=== PATIENT | female | born 1970 | race African-American/Black ===

== ENCOUNTER 2017-06-27 13:47 | Emergency (ER) | payer SELFPAY ==
[~2017-06-27] VITALS: Ht 157.5 cm; Wt 82.6 kg
[~2017-06-27 13:47] MED LIST: HYDROCHLOROTHIA25 MG ORAL
[2017-06-27] MEDS ORDERED: Methocarbamol 750mg tab ORAL ONE (14:30)
[2017-06-27] MEDS ORDERED: ROBAXIN-750750 MG PO (15:07)
[2017-06-27] MEDS ORDERED: IBUPROFEN600 MG ORAL (15:07)
[2017-06-27 15:20] VITALS: BP 130/87
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
== END 2017-06-27 15:20 | disposition home or self-care (01) ==
LOC: EMR 14:51
DX: S16.1XXA Strain of muscle, fascia and tendon at neck level, initial encounter (principal); V43.52XA Car driver injured in collision with other type car in traffic accident, initial encounter; Y92.410 Unspecified street and highway as the place of occurrence of the external cause; I10 Essential (primary) hypertension
CPT/HCPCS: 99283

== ENCOUNTER 2020-09-13 09:14 | Emergency (ER) | payer OTHER ==
[~2020-09-13] VITALS: Ht 157.5 cm; Wt 90.7 kg
[~2020-09-13 09:14] MED LIST changes: +IBUPROFEN600 MG ORAL; +ROBAXIN-750750 MG PO
[2020-09-13 09:47] VITALS: BP 166/96
--- NOTE | 2020-09-13 10:05 | Emergency Room Report ---
History of Present Illness General Chief Complaint: Lower Extremity Injury Source: Patient Present Illness HPI 50-year-old female presents with right knee pain and swelling. Started a few days ago. States that she "has bad knees" but has not sought medical attention yet. Pain is throbbing, 6 out of 10, nonradiating. Denies any calf pain or calf swelling. Is able to bear weight. No other aggravating relieving factors. 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 Patient History Past Medical History: HTN Past Surgical History: none Pertinent Family History: none Social History: Denies: smoking, alcohol use, drug use Last Menstrual Period: NA Now: No Immunizations: UTD Reviewed Nursing Documentation: PMH: Agreed; PSxH: Agreed Nursing Documentation-PMH Past Medical History: No History, Except For Hx Hypertension: Yes Review of Systems All Other Systems: negative except mentioned in HPI Physical Exam Vital Signs Date Time Temp Pulse Resp B/P (MAP) Pulse Ox O2 Delivery O2 Flow Rate FiO2 09/13/20 09:47 98.8 79 20 166/96 (119) 97 Room Air Sp02 EP Interpretation: reviewed, normal General Appearance: no apparent distress, alert, GCS 15, non-toxic Head: normocephalic, atraumatic Eyes: bilateral eye normal inspection, bilateral eye PERRL ENT: hearing grossly normal, normal pharynx, no angioedema, normal voice Neck: full range of motion, supple/symm/no masses Respiratory: chest non-tender, lungs clear, normal breath sounds, speaking full sentences Cardiovascular #1: regular rate, rhythm, no edema Cardiovascular #2: 2+ carotid (R), 2+ carotid (L), 2+ radial (R), 2+ radial (L), 2+ dorsalis pedis (R), 2+ dorsalis pedis (L) Gastrointestinal: normal bowel sounds, non tender, soft, non-distended, no guarding, no rebound Rectal: deferred Genitourinary: normal inspection, no CVA tenderness Musculoskeletal: back normal, normal range of motion, gait/station normal, tender - R knee Neurologic: alert, motor strength/tone normal, oriented x3, sensory intact, responsive, speech normal Psychiatric: judgement/insight normal, memory normal, mood/affect normal, no suicidal/homicidal ideation Reflexes: 3+ bicep (R), 3+ bicep (L), 3+ tricep (R), 3+ tricep (L), 3+ knee (R), 3+ knee (L) Lymphatic: no adenopathy Procedures Splinting Splinting : Consent: Verbal Pre-Made Type: WILLY wrap Pre-Proc Neuro Vasc Exam: normal Post-Proc Neuro Vasc Exam: normal Patient Tolerated: Well Complications: None Medical Decision Making Diagnostic Impression: Primary Impression: Knee pain Qualified Codes: M25.561 - Pain in right knee ER Course Hospital Course 50-year-old female presents with right knee pain and swelling Differential diagnoses include: Fracture, dislocation, sprain, contusion Clinical course Patient placed on stretcher. After initial history and physical, I ordered xrays of right knee. Patient declined pain meds X-ray shows significant DJD. Discussed with patient. Placed in Willy wrap. Recommend modified activity including elevation, icing, NSAIDs. Will provide Ortho referrals She states she is close to running out of her hydrochlorothiazide. Will provide a refill Diagnosis - knee pain Stable and discharged to home with. apply ice, keep elevated. weight bear as tolerated. Followup with PMD. Return to ED if symptoms recur or worsen Other X-Ray Diagnostic Results Other X-Ray Diagnostic Results : X-Ray ordered: R knee # of Views/Limited Vs Complete: 3 View Indication: Pain EP Interpretation: Yes Interpretation: no dislocation, no soft tissue swelling, no fractures, other - DJD Impression: Other - Arthralgia of knee Electronically Signed by: Electronically signed by Akhil Rondon MD Last Vital Signs Date Time Temp Pulse Resp B/P (MAP) Pulse Ox O2 Delivery O2 Flow Rate FiO2 09/13/20 09:47 98.8 79 20 166/96 (119) 97 Room Air Status: improved Disposition: HOME, SELF-CARE Condition: Stable Scripts Hydrochlorothiazide* (HYDROCHLOROTHIAZIDE*) 25 Mg Tablet 25 MG ORAL DAILY, #30 TAB Prov: Akhil Rondon MD 09/13/20 Acetaminophen* (TYLENOL EXTRA STRENGTH*) 500 Mg Tablet 500 MG ORAL Q8H PRN for Prn Headache/Temp > 101, #30 TAB 0 Refills Prov: Akhil Rondon MD 09/13/20 Akhil Rondon MD Sep 13, 2020 10:04
[2020-09-13] MEDS ORDERED: TYLENOL EXTRA500 MG ORAL (10:36)
[2020-09-13] MEDS ORDERED: HYDROCHLOROTHIA25 MG ORAL (10:36)
--- NOTE | 2020-09-13 14:50 | Diagnostic Imaging Report ---
Indication: Right knee pain Technique: 3 views of the right knee Comparison: None Findings: There is degenerative narrowing the medial joint compartment. There are associated osteophytes. The lateral and patellofemoral compartments appear preserved. However, there is slight irregularity of the patellar articular surface, could indicate early degenerative changes. No acute fracture. No dislocation. Impression: Degenerative changes as described. No acute bony trauma
== END 2020-09-13 10:38 | disposition home or self-care (01) ==
LOC: EMR 10:19
DX: M17.11 Unilateral primary osteoarthritis, right knee (principal); M25.561 Pain in right knee; I10 Essential (primary) hypertension
CPT/HCPCS: 99283